=== PATIENT | male | born 1935 | race Caucasian/White ===

== ENCOUNTER 2016-05-06 06:59 | Emergency (ER) | payer OTHER, BC ==
[~2016-05-06] VITALS: Ht 167.6 cm; Wt 66.7 kg
[2016-05-06] MEDS ORDERED: DILANTIN100 MG PO (07:29)
[2016-05-06] MEDS ORDERED: ASPIR 8181 M1 PO (07:29)
[2016-05-06] MEDS ORDERED: K-DUR10 MEQ PO (07:30)
[2016-05-06] MEDS ORDERED: PANTOPRAZOLE SO40 MG PO (07:30)
[2016-05-06] MEDS ORDERED: FOLIC ACID1 MG PO (07:31)
[2016-05-06 08:49] LABS: CHLORIDE 105 mEq/L (99-109); POTASSIUM 4.2 mEq/L (3.7-5.4); SODIUM 138 mEq/L (136-147)
[2016-05-06 08:50] LABS: GLUCOSE 93 mg/dL (70-99)
[2016-05-06 08:52] LABS: ANION GAP 10 MEQ/L (2-14)
[2016-05-06 08:54] LABS: GFR ESTIMATE (CALCULATED) > 59 mL/min/
[2016-05-06 08:55] LABS: UREA NITROGEN (BUN) 19 mg/dL (9-23)
[2016-05-06 11:53] VITALS: BP 139/79
== END 2016-05-06 12:13 | disposition home or self-care (01) ==
LOC: EME 06:59
PROVIDERS: Emergency Medicine
DX: S86.912A Strain of unspecified muscle(s) and tendon(s) at lower leg level, left leg, initial encounter (principal); X58.XXXA Exposure to other specified factors, initial encounter; Z79.82 Long term (current) use of aspirin; Z87.891 Personal history of nicotine dependence
CPT/HCPCS: 80048; 99281; 99284

== ENCOUNTER 2017-10-21 06:08 | Emergency (ER) | payer OTHER, BC ==
[~2017-10-21] VITALS: Ht 170.2 cm; Wt 62.8 kg
[~2017-10-21 06:08] MED LIST: ASPIR 8181 M1 PO; DILANTIN100 MG PO; FOLIC ACID1 MG PO; K-DUR10 MEQ PO; PANTOPRAZOLE SO40 MG PO
[2017-10-21 07:14] VITALS: BP 174/109
== END 2017-10-21 07:20 | disposition home or self-care (01) ==
LOC: EME 06:08
DX: Z48.89 Encounter for other specified surgical aftercare (principal); Z90.3 Acquired absence of stomach [part of]; Z85.9 Personal history of malignant neoplasm, unspecified; Z92.21 Personal history of antineoplastic chemotherapy
CPT/HCPCS: 99281; 99283